=== PATIENT | male | born 1975 | race Caucasian/White ===

== ENCOUNTER → 2017-03-19 | Outpatient (CLI) | payer BC | LOC: BMCIMAGING 15:32 | PROVIDERS: ATTEND Family Medicine | DX: R07.81 Pleurodynia (principal) | CPT/HCPCS: 71101-PO ==

== ENCOUNTER 2018-07-11 13:16 | Emergency (ER) | payer BC ==
[2018-07-11 14:31] LABS: PLATELET COUNT 313 10^3/uL (150-400)
--- NOTE | 2018-07-11 14:49 | EDPHY ---
H & P Time Seen by Provider: 07/11/18 14:20 HPI/ROS: HPI Depression. 42-year-old male by private vehicle. This patient has a long history of depression. He had been on Zoloft for 14 years. He weaned himself off of Zoloft about 5 months ago. He noticed about a month ago signs of depression slowly creeping back in. He started taking Zoloft again about 5 days ago he reports for the last 3 days he has been severely depressed. He reports that this morning he was sobbing and crying for half an hour in explicitly. He also reports he has had problems sleeping and has not been able to sleep without taking Ambien. He also reports a loss of appetite. He states that he is not suicidal. He has 2 brothers who live in town and his mother is coming out to see him in the next day or 2. He has strong family support. Denies any drugs or alcohol. No other complaints. ROS: Constitutional: No fever, no chills. No weakness. Eyes: No discharge. No changes in vision. ENT: No sore throat. No nasal congestion or rhinorrhea. Respiratory: No cough. No shortness of breath. Cardiac: No chest pain, no palpitations. Gastrointestinal: No abdominal pain, no vomiting, no diarrhea. Genitourinary: No hematuria. No dysuria or increased frequency with urination. Musculoskeletal: No back pain. No neck pain. No myalgias or arthralgias. Skin: No rashes. Neurological: No headache. No focal weakness or altered sensation. Past medical history: Depression. Social history: Nonsmoker. No alcohol. Here by himself. 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 Denies IV drugs and street drugs. As above. Physical Exam: General Appearance: Alert, no distress. This patient is responding to questions appropriately and in full sentences. This patient appears well- hydrated and well-nourished. Eyes: Pupils equal and round no pallor or injection. No lid edema, erythema or injection. Respiratory: There are no retractions, lungs are clear to auscultation with good air movement bilaterally. Cardiovascular: Regular rate and rhythm. No murmur. Gastrointestinal: Abdomen is soft and nontender, no masses, bowel sounds normal. No focal tenderness at McBurney's point. No Avery sign. Neurological: Motor sensory function is grossly intact. Cranial nerves are normal. Gait is normal. Skin: Warm and dry, no rashes. Musculoskeletal: Neck is supple and nontender. Extremities are symmetrical. All joints range without pain or impingement. Psychiatric: No agitation. No depression. Database: EKG: Imaging: Procedures: Emergency department course: Triage vital signs reviewed and are normal. Behavioral Health notified. This patient has been medically cleared by myself behavioral health evaluation. I do not feel he requires tox screens. I also do not feel at this time he requires being placed on an M1 hold. 3:45 p.m., patient seen and evaluated by [facility]. Patient cleared for discharge to home. He has a follow-up appointment with his primary care physician, Dr. Chapman, on Wednesday. His depression will be further evaluated and managed at that time. He does feel comfortable going home and I feel he is safe for discharge. He is not suicidal. He will continue his Zoloft as restarted 5 days ago. Return to emergency department precautions reviewed with him. All of his questions were answered. He was discharged from emergency department in good condition. I also agree to give him a limited prescription for Halcion to help with his insomnia. Differential Diagnosis: The differential diagnosis on this patient includes but is not limited to situational depression, major depression. Suicidal ideation unlikely. This represents a partial list of diagnoses considered. These considerations are based on history, physical exam, past history, reassessment and diagnostic testing. Smoking Status: Never smoked Constitutional: Initial Vital Signs Temperature (C) 36.6 C 07/11/18 13:18 Heart Rate 81 07/11/18 13:18 Respiratory Rate 18 07/11/18 13:18 Blood Pressure 128/94 H 07/11/18 13:18 O2 Sat (%) 96 07/11/18 13:18 O2 Delivery Mode Room Air Allergies/Adverse Reactions: Penicillins Allergy (Verified 07/12/18 10:59) Home Medications: Medication Instructions Recorded Ambien 07/11/18 Triazolam [Halcion 0.25MG (*)] 0.25 mg PO HS #7 tab 07/11/18 Zoloft 50mg (*) 07/11/18 LORazepam [Ativan 1 mg (RX)] 1 mg PO Q6-8PRN PRN #10 tab 09/11/18 Medical Decision Making - Data Points Laboratory Results: Laboratory Results 07/11/18 14:25 07/11/18 14:25 Departure - Departure Disposition: Home, Routine, Self-Care Clinical Impression: Depression, Insomnia Condition: Good Instructions: Depression (ED) Additional Instructions: Read and follow provided instructions. Follow-up with your primary care physician on Wednesday for re-evaluation as discussed. Take your Zoloft as prescribed. Do not take Ambien. Take sleep aid medication I prescribed you only. Return to the emergency department for worsening depression, suicidal thoughts or other serious concerns. Referrals: Patricio Chapman MD [Primary Care Provider] - As per Instructions Prescriptions: Triazolam [Halcion 0.25MG (*)] 0.25 mg PO HS #7 tab
[2018-07-11 16:41] VITALS: BP 124/84
--- NOTE | 2018-07-11 18:21 | ASMTLCPROG ---
Notes Note: Notes: Dr. Salomon requested consult. Pt reports he has been on zoloft 100mg for 14 years and it has been working very well. Approx 5 months ago, he decided to wean himself off and abruptly cut his dose down to 50mg. Since the taper, pt reports feeling increased depression, tearfullness and having panic attacks. Pt stated it got bad enough today he came to the ED. Pt reports he is not suicidal and stated " I would tell you if I was." Pt reports he has never been suicidal. Pt reports he is having a lot of difficulty sleeping and has lost his appetite 5 days ago. Pt reports today he started crying uncontrollably and called a friend and went to their house. Pt has since been staying with family members. Pt made an appointment with his PCP Dr. Chapman to discuss his medications. I gave pt resources for therapists in [facility] and to [facility]. . Date Signed: 07/11/2018 06:21 PM Electronically Signed By:Bertha Flores
== END 2018-07-11 16:41 | disposition home or self-care (01) ==
DX: F32.9 Major depressive disorder, single episode, unspecified (principal); G47.00 Insomnia, unspecified
CPT/HCPCS: G0480

== ENCOUNTER 2018-07-12 10:54 | Emergency (ER) | payer BC ==
[2018-07-12 12:37] LABS: PLATELET COUNT 319 10^3/uL (150-400)
--- NOTE | 2018-07-12 15:04 | EDPHY ---
H & P Smoking Status: Never smoked Time Seen by Provider: 07/12/18 12:01 HPI/ROS: HPI Depression. 42-year-old male by private vehicle with his mother. I saw this patient yesterday in the emergency department. He was evaluated by [facility] for depression. He was not suicidal. He was also having problems with insomnia. He stated that he was taking Ambien which would only allow him to sleep 2-3 hours. He was cleared by Behavioral Health for discharge to home. I prescribed him Halcion to help him sleep. He was to follow up with his primary care physician Dr. Chapman within the next day or 2. He presents to the emergency department complaining today of worsening depression. He states that the Halcion did not help him sleep much. He is not sure if he is suicidal but states that he does not see any and to his depression. Denies any inciting event. ROS: Constitutional: No fever, no chills. No weakness. Eyes: No discharge. No changes in vision. ENT: No sore throat. No nasal congestion or rhinorrhea. Respiratory: No cough. No shortness of breath. Cardiac: No chest pain, no palpitations. Gastrointestinal: No abdominal pain, no vomiting, no diarrhea. Genitourinary: No hematuria. No dysuria or increased frequency with urination. Musculoskeletal: No back pain. No neck pain. No myalgias or arthralgias. Skin: No rashes. Neurological: No headache. No focal weakness or altered sensation. Past medical history: Depression, social anxiety order. Social history: Nonsmoker. Denies drugs or alcohol. Here with his mother. Strong family support with 2 brothers who live in town. Physical Exam: General Appearance: Alert, no distress. This patient is responding to questions appropriately and in full sentences. This patient appears well- hydrated and well-nourished. Eyes: Pupils equal and round no pallor or injection. No lid edema, erythema or injection. Respiratory: There are no retractions, lungs are clear to auscultation with good air movement bilaterally. Cardiovascular: Regular rate and rhythm. No murmur. Gastrointestinal: Abdomen is soft and nontender, no masses, bowel sounds normal. No focal tenderness at McBurney's point. No Avery sign. Neurological: Motor sensory function is grossly intact. Cranial nerves are normal. Gait is normal. Skin: Warm and dry, no rashes. Musculoskeletal: Neck is supple and nontender. Extremities are symmetrical. All joints range without pain or impingement. Psychiatric: No agitation. As above. Database: EKG: Imaging: Procedures: Emergency department course: Triage vital signs reviewed and are normal. [facility] is aware the patient is here and is awaiting evaluation. 3:00 p.m., the patient will be evaluated by [facility] shortly. His care will be turned over to Dr. Kyle Perez. Differential Diagnosis: The differential diagnosis on this patient includes but is not limited to situational depression, major depression, suicidal ideation. This represents a partial list of diagnoses considered. These considerations are based on history , physical exam, past history, reassessment and diagnostic testing. (Margy Lopez) Constitutional: Initial Vital Signs Temperature (C) 37.3 C 07/12/18 11:00 Heart Rate 77 07/12/18 11:00 Respiratory Rate 17 07/12/18 11:00 Blood Pressure 125/90 H 07/12/18 11:00 O2 Sat (%) 95 07/12/18 11:00 O2 Delivery Mode Room Air Allergies/Adverse Reactions: Penicillins Allergy (Verified 07/12/18 10:59) Home Medications: Medication Instructions Recorded Ambien 07/11/18 Triazolam [Halcion 0.25MG (*)] 0.25 mg PO HS #7 tab 07/11/18 Zoloft 50mg (*) 07/11/18 LORazepam [Ativan 1 mg (RX)] 1 mg PO Q6-8PRN PRN #10 tab 07/12/18 Medical Decision Making ED Course/Re-evaluation: The patient has been evaluated by Mental Health. They do not feel that he requires inpatient admission but do request that he gets little Ativan for help with his anxiety. They given multiple resources for follow-up. 6:00 p.m. The patient is feeling much better after Ativan. Mental Health is given him resources and follow-up. (Kyle Perez) - Data Points Laboratory Results: Laboratory Results 07/12/18 12:15 07/12/18 12:15 07/12/18 07/12/18 12:15 12:15 WBC 6.39 10^3/uL 10^3/uL (3.80-9.50) RBC 5.02 10^6/uL 10^6/uL (4.40-6.38) Hgb 15.6 g/dL g/dL (13.7-17.5) Hct 44.0 % % (40.0-51.0) MCV 87.6 fL fL (81.5-99.8) MCH 31.1 pg pg (27.9-34.1) MCHC 35.5 g/dL g/dL (32.4-36.7) RDW 12.9 % % (11.5-15.2) Plt Count 319 10^3/uL 10^3/uL (150-400) MPV 9.1 fL fL (8.7-11.7) Neut % (Auto) 73.0 % % (39.3-74.2) Lymph % (Auto) 21.0 % % (15.0-45.0) [place] % (Auto) 4.9 % % (4.5-13.0) Eos % (Auto) 0.0 % L % (0.6-7.6) Baso % (Auto) 0.6 % % (0.3-1.7) Nucleat RBC Rel Count 0.0 % % (0.0-0.2) Absolute Neuts (auto) 4.67 10^3/uL 10^3/uL (1.70-6.50) Absolute Lymphs (auto) 1.34 10^3/uL 10^3/uL (1.00-3.00) Absolute Monos (auto) 0.31 10^3/uL 10^3/uL (0.30-0.80) Absolute Eos (auto) 0.00 10^3/uL L 10^3/uL (0.03-0.40) Absolute Basos (auto) 0.04 10^3/uL 10^3/uL (0.02-0.10) Absolute Nucleated RBC 0.00 10^3/uL 10^3/uL (0-0.01) Immature Gran % 0.5 % % (0.0-1.1) Immature Gran # 0.03 10^3/uL 10^3/uL (0.00-0.10) Sodium 139 mEq/L mEq/L (135-145) Potassium 3.9 mEq/L mEq/L (3.3-5.0) Chloride 106 mEq/L mEq/L (97-110) Carbon Dioxide 25 mEq/l mEq/l (22-31) Anion Gap 8 mEq/L mEq/L (8-16) BUN 10 mg/dL mg/dL (7-23) Creatinine 0.7 mg/dL mg/dL (0.7-1.3) Estimated GFR > 60 Glucose 110 mg/dL H mg/dL (70-100) Calcium 9.6 mg/dL mg/dL (8.5-10.4) Ethyl Alcohol < 10 mg/dL mg/dL (0-10) Medications Given: Discontinued Medications Lorazepam (Ativan) 2 mg PO EDNOW ONE Stop: 07/12/18 15:42 Last Admin: 07/12/18 15:54 Dose: 2 mg Departure - Departure Disposition: Home, Routine, Self-Care Clinical Impression: Anxiety Depression Qualifiers: Depression Type: major depressive disorder Major depression recurrence: recurrent Active/Remission status: currently active Major depression episode severity: moderate Qualified Code(s): F33.1 - Major depressive disorder, recurrent, moderate Condition: Good Instructions: Mood Disorders (ED), Anxiety (ED) Referrals: NONE *PRIMARY CARE P,. [Primary Care Provider] - As per Instructions [facility] [Clinic] - As per Instructions Prescriptions: LORazepam [Ativan 1 mg (RX)] 1 mg PO Q6-8PRN PRN #10 tab PRN Reason: *Anxiety/Agitation/Insomnia
[2018-07-12] MEDS ORDERED: LORazepam 1 MG TAB PO ONE (15:41)
[2018-07-12 16:51] VITALS: BP 134/93
--- NOTE | 2018-07-12 18:22 | ASMTLCPROG ---
Notes Note: Notes: [facility] Consult/Referral Pt was seen in the ED yesterday for complaints of increased depression and anxiety after stopping his Zoloft 5 months ago. Pt was D/c'd yesterday with a prescription for Halcion to help him sleep but pt stated it did not help him. Yesterday, I gave pt a list of therapist to call and a crisis number and pt was going to follow up with his PCP tomorrow. We also discussed some coping skills to use to with anxiety/panic attacks. Pt returns today complaining of increased anxiety and stated, " I feel like my body is going through an incredible amount of stress and how is this going to end? WIll I have a heart attack? Will I commit suicide? I can't control my mind." Pt reports having a tightness in his chest, unable to sleep and unable to eat. Pt denied wanting to harm himself and denies SI but states his anxiety is dominating his life and he feels afraid. Pt stated yesterday when he left the ER he felt motivated but now he feels hopeless. Pt's mother was in the room during the consult and pt stated he has had some recent stressors that he feels may be contributing to his current state. Pt stated that he has social anxiety, unable to be in a relationship and that he his denson, which was the first time he has told anyone, including his mother. Pt's mother was very supportive towards pt. Pt was tearful during the consult but has good insight and good judgment. Pt was given 2mg ativan while in the ED and pt stated he felt much better and his anxiety symptoms have improved. We discussed pt following up with the resources provided to him yesterday. Pt stated he was going to look into getting a therapist. Date Signed: 07/12/2018 06:19 PM Electronically Signed By:Bertha Flores
== END 2018-07-12 18:20 | disposition home or self-care (01) ==
DX: F33.1 Major depressive disorder, recurrent, moderate (principal)
CPT/HCPCS: G0480

== ENCOUNTER → 2018-10-18 | Outpatient (CLI) | payer BC ==
[~2018-10-18] MED LIST: IOPAMIDOL (ISOVUE-300) 200 ML BTL ONE
== END ==
LOC: FIMAGING 10:54
PROVIDERS: ATTEND Internal Medicine
DX: R31.9 Hematuria, unspecified (principal)
CPT/HCPCS: Q9967